=== PATIENT | male | born 1950 | race Caucasian/White ===

== ENCOUNTER → 2023-08-31 13:14 | Outpatient (REF) | payer MEDICARE, OTHER, SELFPAY | LOC: PAVMRI 13:14 | PROVIDERS: ATTENDING PHYSICIAN Internal Medicine Cardiovascular Disease; FAMILY PHYSICIAN Registered Nurse | DX: I72.8 Aneurysm of other specified arteries (principal); I77.1 Stricture of artery | CPT/HCPCS: 74185; A9585 ==

== ENCOUNTER → 2024-02-02 12:52 | Outpatient (REF) | payer MEDICARE, OTHER, SELFPAY | LOC: RCS 12:52 | PROVIDERS: ATTENDING PHYSICIAN Nurse Practitioner; FAMILY PHYSICIAN Registered Nurse | DX: R07.89 Other chest pain (principal) | CPT/HCPCS: 93017 ==

== ENCOUNTER → 2024-02-23 11:23 | Outpatient (REF) | payer MEDICARE, OTHER, SELFPAY | LOC: RAD 11:23 | PROVIDERS: ATTENDING PHYSICIAN Internal Medicine Cardiovascular Disease; FAMILY PHYSICIAN Registered Nurse | DX: I71.21 Aneurysm of the ascending aorta, without rupture (principal) | CPT/HCPCS: 71275; Q9967 ==

== ENCOUNTER → 2024-10-03 10:40 | Outpatient (REF) | payer MEDICARE, OTHER, SELFPAY | LOC: MRI 10:40 | PROVIDERS: ATTENDING PHYSICIAN Internal Medicine Cardiovascular Disease; FAMILY PHYSICIAN Registered Nurse | DX: I72.8 Aneurysm of other specified arteries (principal) | CPT/HCPCS: 74185; A9585 ==

== ENCOUNTER → 2024-11-08 08:07 | Outpatient (REF) | payer MEDICARE, OTHER, SELFPAY ==
[2024-11-08 11:03] LABS: Cortisol, Random 12.6 ug/dl
[2024-11-10 01:37] LABS: % Free Testosterone 1.6 % (1.6-2.9); Free Testosterone 77 pg/mL (47-244); Sex Hormone Binding Globulin 42 nmol/L (19-76); Testosterone, Bioavailable 218 ng/dL (131-682); Total Testosterone 472 ng/dL (300-720)
== END ==
LOC: REG 08:07
PROVIDERS: ATTENDING PHYSICIAN Registered Nurse
DX: R53.82 Chronic fatigue, unspecified (principal)
CPT/HCPCS: 36415; 82533; 84270; 84402; 84403

== ENCOUNTER → 2025-03-16 10:22 | Outpatient (REF) | payer MEDICARE, OTHER, SELFPAY ==
[2025-03-16 11:14] LABS: Blood Urea Nitrogen 17 mg/dl (9-20); Calcium 9.5 mg/dl (8.4-10.2); Carbon Dioxide 31 mmol/L (22-30); Chloride 103 mmol/L (98-107); Glucose 110 mg/dl (70-99); Potassium 4.4 mmol/L (3.5-5.1); Sodium 140 mmol/L (135-145); eGFR > 60.00
== END ==
LOC: REG 10:22
PROVIDERS: ATTENDING PHYSICIAN Internal Medicine Cardiovascular Disease; FAMILY PHYSICIAN Registered Nurse
DX: I71.21 Aneurysm of the ascending aorta, without rupture (principal); Z01.812 Encounter for preprocedural laboratory examination
CPT/HCPCS: 36415; 80048

== ENCOUNTER → 2025-03-21 15:45 | Outpatient (REF) | payer MEDICARE, OTHER, SELFPAY | LOC: RAD 15:45 | PROVIDERS: ATTENDING PHYSICIAN Internal Medicine Cardiovascular Disease; FAMILY PHYSICIAN Registered Nurse | DX: I71.21 Aneurysm of the ascending aorta, without rupture (principal) | CPT/HCPCS: 71275; Q9967 ==